=== PATIENT | female | born 1960 | race Caucasian/White ===

== ENCOUNTER 2018-09-01 05:31 | Inpatient (IN) | payer BC ==
[2018-08-25 09:42] LABS: URINE BILIRUBIN NEGATIVE (Negative); URINE BLOOD NEGATIVE (Negative); URINE CLARITY CLEAR; URINE COLOR YELLOW; URINE GLUCOSE-RANDOM* NEGATIVE (Negative); URINE KETONES NEGATIVE (Negative); URINE LEUKOCYTES-REFLEX NEGATIVE (Negative); URINE NITRITE-REFLEX NEGATIVE (Negative); URINE PROTEIN (DIPSTICK) NEGATIVE (Negative); URINE SPECIFIC GRAVITY 1.015 (1.005-1.035); URINE UROBILINOGEN 0.2 E.U./dl (0.2-1.0)
[2018-08-25 09:43] LABS: HEMATOCRIT 41.3 % (37.0-47.0); MCH 30.4 pg (26.0-34.0); MCHC 33.9 g/dL (28.0-37.0); MCV 89.7 fL (80.0-100.0); RBC 4.6 mil/uL (4.20-5.00); WBC 3.7 thou/uL (4.0-11.0)
[2018-08-25 09:55] LABS: PROTIME 9.9 Seconds (9.3-11.4)
[2018-08-25 09:59] LABS: ALBUMIN 3.8 g/dL (3.4-5.0); CALCIUM 9.9 mg/dL (8.5-10.1); CREATININE 0.8 mg/dL (0.6-1.0); POTASSIUM 4.3 mmol/L (3.5-5.1)
[~2018-09-01] VITALS: Ht 160 cm; Wt 88.5 kg
--- NOTE | ~2018-09-01 | EKG ---
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
--- NOTE | ~2018-09-01 | O ---
[facility] [address] [place] [address] OPERATIVE REPORT Name: KEVON HERRERA Room #: 423-1 [facility] IN M.R.#: [id number] Admission: 09/01/18 Attend Phys: Tony Faith MD Discharge: 09/02/18 Date of : 62 Report #: [id number] THIS REPORT FOR: //name// CC: Penny Aragon Tony Faith DATE OF SERVICE: 09/01/2018 PREOPERATIVE DIAGNOSIS: Right knee osteoarthritis. POSTOPERATIVE DIAGNOSIS: Right knee osteoarthritis. PROCEDURE: Right total knee arthroplasty using Navio robotic assistance. SURGEON: Tony Faith MD. CONCRETE CARPENTER: Steffanie Mendoza PA-C INDICATION FOR CONCRETE CARPENTER: Throughout the case, extensive retraction and manipulation of the knee was required. This was afforded to me by my journeyman operator assistant. ANESTHESIA: LMA with an adductor canal block. IMPLANTS: Young and Nephew size 4 Journey II BCS Oxinium femur, a size 3 tibia, size 10 polyethylene, and a size 29 patella. TOURNIQUET TIME: 62 minutes. ESTIMATED BLOOD LOSS: 25 mL. COMPLICATIONS: None. SPECIMENS: None. CONDITION UPON LEAVING THE OPERATING ROOM: Stable. INDICATIONS FOR PROCEDURE: The patient is a 57-year-old female with right knee osteoarthritis. She has failed conservative treatment for this and after discussion with her, she elected for right total knee arthroplasty. DESCRIPTION OF PROCEDURE: Risks, benefits, alternatives and complications were discussed in detail with the patient including but not limited to risk of anesthesia, risk of damage to nerves, arteries, blood vessels, risk for infection, bleeding, risk for continued knee pain and need for reoperation. Informed consent was obtained from the patient. The right knee was appropriately marked in the preoperative holding area. IV Ancef was given for [facility] [address] [place] [address] OPERATIVE REPORT Name: KEVON HERRERA Room #: 423-1 [facility] IN M.R.#: [id number] Admission: 09/01/18 Attend Phys: Tony Faith MD Discharge: 09/02/18 Date of : 62 Report #: [id number] preoperative antibiotics. She was brought to the operating room and placed in supine position on operating room table. LMA anesthesia was induced without complication. Tourniquet was placed on the right thigh. Right lower extremity was prepped and draped in normal sterile fashion. Timeout was performed properly identifying the patient and procedure as well as the instrumentation and implants. All in the operating room were in agreement. Right lower extremity was exsanguinated, tourniquet was inflated. Tourniquet time 62 minutes. Standard midline approach to knee was made with 10 blade through the skin. Dissection was taken down sharply to the fascia and deep flaps were developed medially and laterally. Fresh 10 blade was used to make a medial parapatellar arthrotomy and the knee was inspected. There was severe medial compartment osteoarthritis with moderate lateral compartment degenerative changes. It was decided to proceed with total knee arthroplasty. Anterior horns of the meniscus were removed sharply. ACL and PCL were removed sharply. Reference pins were then placed in the femur and the tibia for the Navio robotic system. The knee was then digitally mapped using the Navio system and the intraoperative plan was made. We sized a size 4 femur and a size 3 tibia. After acceptance of the intraoperative plan, the distal femoral cut was made with a Navio darnell and the 5-in-1 cutting block was placed on the femur. Anterior, posterior, and chamfer cuts were made. After this, attention was turned to the tibia. This was subluxed anteriorly and the remainder of the menisci were removed with Bovie cautery. Tibial resection was then made using the Navio navigation system for placement of the resection guide. After this, flexion and extension gaps were checked and found to have good balance in flexion and in extension. The tibia was sized, found to be a size 3, a size 3 tibial trial was placed and then punched. A size 4 femoral trial was placed and the box cut was made. This was trialed with a size 9 and then size 10 polyethylene, size 10 had the best fit throughout a range of motion both manually as well as digitally. 9 mm was taken off the posterior surface of the patella and a size 29 patellar trial button was placed. Knee was taken through range of motion, found to be stable, found to have good patellar tracking. After this, trial components were removed. Bone ends were thoroughly irrigated with normal saline. A final size 3 tibia, size 4 Journey II BCS Oxinium femur and a size 29 patella were cemented in place using standard cementation techniques. While the cement cured, a periarticular injection consisting of morphine, ropivacaine, epinephrine and Toradol was placed around the knee joint capsule. After the cement cured, the tourniquet was deflated. Hemostasis was obtained with Bovie cautery. Final size 10 polyethylene was placed. A gram of vancomycin was placed deep in the joint. Fascia was closed with 0 Vicryl, skin was closed with 2-0 Vicryl, 3-0 Monocryl, Dermabond and a GLADYS dressing was applied. The patient tolerated this procedure well and went to recovery room under care of anesthesia postoperatively. <ELECTRONICALLY SIGNED> By: Tony Faith MD 09/06/18 1713 1645 1717 MD dayanna Lindsay
[~2018-09-01 05:31] MED LIST: ALEVE220 MG PO; CALCIUM MAG ZINC PO; CETIRIZINE HCL5 MG PO; FISH OIL 1,001000 M2 PO; KLOR-CON 10 ER10 MEQ PO; LASIX 20 MG TAB20 MG PO; MULTI VITAMIN1 EACH PO; VITAMIN B-121000 MCG PO; VITAMIN B-6100 MG PO; VITAMINC500 PO; [UNRECOGNIZED DRUG - OTHER] PO
[2018-09-01 21:26] VITALS: BP 120/69
[2018-09-02 03:09] VITALS: BP 152/81
[2018-09-02 05:59] LABS: HEMATOCRIT 36.4 % (37.0-47.0); HEMOGLOBIN 12.3 gm/dL (12.0-15.0); MCH 30.3 pg (26.0-34.0); MCHC 33.7 g/dL (28.0-37.0); MCV 89.9 fL (80.0-100.0); RBC 4.05 mil/uL (4.20-5.00); RDW 12.7 % (10.5-14.5); WBC 9.2 thou/uL (4.0-11.0)
[2018-09-02 07:40] VITALS: BP 105/55
[2018-09-02] MEDS ORDERED: TRI-BUFFERED A325 M1 PO (11:35)
[2018-09-02] MEDS ORDERED: NEURONTIN 300300 M1 PO (11:35)
[2018-09-02 12:06] VITALS: BP 105/55
[2018-09-02 15:50] VITALS: BP 104/54
== END 2018-09-02 18:37 | disposition home health service (06) | DRG 470 ==
LOC: PRE 05:31 → 4E 05:32 → TBA 05:32 → PRE 05:36 → 4E 17:41
PROVIDERS: Orthopaedic Surgery
PROC: 0SRC069 Replacement of Right Knee Joint with Oxidized Zirconium on Polyethylene Synthetic Substitute, Cemented, Open Approach (ICD-10-PCS; principal; 2018-09-01)
PROC: 8E0Y0CZ Robotic Assisted Procedure of Lower Extremity, Open Approach (ICD-10-PCS; 2018-09-01)
DX: M17.11 Unilateral primary osteoarthritis, right knee (principal); M71.22 Synovial cyst of popliteal space [Baker], left knee; Z79.899 Other long term (current) drug therapy; Z79.82 Long term (current) use of aspirin; Z82.61 Family history of arthritis; Z83.3 Family history of diabetes mellitus; Z82.49 Family history of ischemic heart disease and other diseases of the circulatory system; Z83.49 Family history of other endocrine, nutritional and metabolic diseases
CPT/HCPCS: 10783; 50010; 50101; 50415; 50954; 51130; 51225; 51771; 53000; 53078; 54118; 55372; 56527; 56528; 57095; 57103; 57109; 57110; 57113; 57127; 57180; 62110; 62900; 64042; 70005

== ENCOUNTER 2018-10-21 06:02 | Day surgery (SDC) | payer BC ==
[~2018-10-21] VITALS: Ht 160 cm; Wt 90.3 kg
--- NOTE | ~2018-10-21 | O ---
[facility] [address] [place] [address] OPERATIVE REPORT Name: KEVON HERRERA Room #: 150-11 [facility] M.R.#: [id number] Admission: 10/21/18 Attend Phys: Tony Faith MD Discharge: Date of : 62 Report #: [id number] THIS REPORT FOR: //name// CC: Penny Aragon Tony Faith DATE OF SERVICE: 10/21/2018 PREOPERATIVE DIAGNOSIS: Right knee arthrofibrosis, status post total knee arthroplasty. POST-PROCEDURE DIAGNOSIS: Right knee arthrofibrosis, status post total knee arthroplasty. PROCEDURE: Right knee manipulation under anesthesia. SURGEON: Tony Faith MD ANESTHESIA: MAC. COMPLICATIONS: None. CONDITION UPON LEAVING THE OPERATING ROOM: Stable. INDICATIONS FOR PROCEDURE: The patient is a 57-year-old female who is about 6 weeks out from a right total knee arthroplasty. She has plateaued with physical therapy with range of motion from 3-80 degrees. After discussion with her regarding options, she elected for right knee manipulation under anesthesia. DESCRIPTION OF PROCEDURE: Risks, benefits, alternatives, complications were discussed in detail with the patient including but not limited to risk of anesthesia, risk of damage to nerves, arteries, blood vessels, risk for infection, bleeding, risk for continued knee pain, stiffness, and need for reoperation as well as intraoperative fracture. Informed consent was obtained from the patient. Right knee was appropriately marked in the preoperative holding area. She was brought to the operating room and placed in the supine position on the operating room table. MAC anesthesia was induced without complication. Timeout was performed properly identifying the patient and procedure as well as instrumentation. All in the operating room were in agreement. Right knee was then examined passively and her range of motion was 3-80 degrees passively. The knee was then gently manipulated with applying pressure on the proximal tibia with palpable breakage of scar tissue. At the end of manipulation, her range of motion was 3-125 degrees. Fluoroscopic imaging was then brought in to verify. No fracture was present as was the case. [facility] [address] [place] [address] OPERATIVE REPORT Name: KEVON HERRERA Room #: 150-[address] [place] [address] M.R.#: [id number] Admission: 10/21/18 Attend Phys: Tony Faith MD Discharge: Date of : 62 Report #: [id number] She was then awakened from anesthesia and taken to the recovery room under care of anesthesia postoperatively. By: [id number] 1356 Tony Faith MD /nt
[~2018-10-21 06:02] MED LIST changes: +NASAL DECONGEST30 MG PO; +NEURONTIN 300300 M1 PO; +PREDNISONE10 MG PO; +TRAMADOL 50 MG50 MG PO; +TRI-BUFFERED A325 M1 PO; +ZYRTEC-D TABLE1 EAC1 PO
[2018-10-21 11:22] LABS: POTASSIUM 3.6 mmol/L (3.5-5.1)
[2018-10-21] MEDS ORDERED: HYDROCODON-ACE1 EA11 PO (13:10)
[2018-10-21 14:43] VITALS: BP 139/82
== END 2018-10-21 15:05 | disposition home or self-care (01) ==
LOC: TBA 06:02 → OR 06:02 → TBA 06:03 → OR 14:29
PROVIDERS: Orthopaedic Surgery
DX: M24.661 Ankylosis, right knee (principal); Z98.890 Other specified postprocedural states
CPT/HCPCS: 50010; 50101; 70005

== ENCOUNTER 2018-12-30 05:38 | Day surgery (SDC) | payer BC ==
[~2018-12-30] VITALS: Ht 157.5 cm; Wt 90.7 kg
--- NOTE | ~2018-12-30 | O ---
[facility] [address] [place] [address] OPERATIVE REPORT Name: KEVON HERRERA Room #: 150-4 [facility] M..#: [id number] Admission: 12/30/18 ������������������ Attend Phys: Tony Faith MD Discharge: ������������������ Date of : 62 Report #: [id number] THIS REPORT FOR: //name// CC: Penny Aragon Tony Faith DATE OF SERVICE: 12/30/2018 PREOPERATIVE DIAGNOSIS: Right total knee arthroplasty arthrofibrosis. POSTOPERATIVE DIAGNOSIS: Right total knee arthroplasty arthrofibrosis. PROCEDURE: Right knee arthroscopy with extensive lysis of adhesions. SURGEON: Tony Faith MD PARAFFIN PLANT OPERATOR: Steffanie Mendoza PA-C ANESTHESIA: LMA. COMPLICATIONS: None. SPECIMENS: None. TOURNIQUET TIME: Approximately 22 minutes. CONDITION UPON LEAVING THE OPERATING ROOM: Stable. INDICATIONS FOR PROCEDURE: The patient is a 58-year-old female, who is about 4 months out from a right total knee arthroplasty. She has been complaining of pain and popping in her knee. She previously has undergone a manipulation under anesthesia. She feels that there is something getting pinched between her in her knee. After discussion with her, she elected for right knee arthroscopy with arthroscopic lysis of adhesions. DESCRIPTION OF PROCEDURE: Risks, benefits, alternatives and complications were discussed in detail with the patient including, but not limited to risk of anesthesia; risk of damage to nerves, arteries, blood vessels, risk for infection or bleeding; risk for continued knee pain, need for reoperation. Informed consent was obtained from the patient. Right knee was appropriately marked in the preoperative holding area. IV Ancef was given for preoperative antibiotics. She was brought to the operating room and placed in supine position on operating room table. LMA anesthesia was induced without complication. Tourniquet was placed on the right thigh. Right lower extremity was prepped and draped in normal sterile fashion. Timeout was performed properly identifying the patient and procedure as well as the instrumentation. [address] [address] OPERATIVE REPORT Name: KEVON HERRERA Room #: 150-4 [facility] Tray.#: [id number] Admission: 12/30/18 ������������������ Attend Phys: Tony Faith MD Discharge: ������������������ Date of : 62 Report #: [id number] All in the operating room were in agreement. Right lower extremity was exsanguinated, tourniquet was inflated. Tourniquet time was approximately 22 minutes. Standard anterolateral portal was established with an 11 blade through the skin. Arthroscope was introduced into the patellofemoral compartment, diagnostic arthroscopy was undertaken. There was extensive medial and lateral as well as anterior scarring and hypertrophy of the synovium throughout the joint. A medial portal was established under arthroscopic visualization. A scar was then removed with oscillating shaver both medially, laterally as well as in the intercondylar notch. After extensive debridement of the scar tissue, all fluid was allowed to drain from the knee. Knee was injected with 10 mL of 0.5% Marcaine. Incision was closed with 3-0 nylon. Soft dressing of Adaptic, 4 x 4, Webril, Bismark wrap were applied. The patient tolerated this procedure well and went to recovery room under care of anesthesia postoperatively. ��������������������������������������������� ���������������������������������������� By: ��������������������������������������������� 1134 1227 Tony Faith MD /nt
[~2018-12-30 05:38] MED LIST changes: +HYDROCODON-ACE1 EA11 PO; +MOBIC15 MG PO
[2018-12-30 09:39] VITALS: BP 123/70
[2018-12-30 11:49] VITALS: BP 123/70
== END 2018-12-30 13:10 | disposition home or self-care (01) ==
LOC: OR 05:38 → TBA 05:39 → OR 06:12
DX: M24.661 Ankylosis, right knee (principal); Z68.36 Body mass index [BMI] 36.0-36.9, adult
CPT/HCPCS: 50010; 50101; 50405; 51038; 54170; 56526; 57103; 62110; 62900; 70005

== ENCOUNTER 2021-09-06 06:06 | Day surgery (SDC) | payer BC ==
[~2021-09-06] VITALS: Ht 160 cm; Wt 90.7 kg
[~2021-09-06 06:06] MED LIST changes: +PEPCID20 MG PO
[2021-09-06 07:30] VITALS: BP 127/66
[2021-09-06] MEDS ORDERED: PERCOCET 7.5-31 EAC1 PO (08:21)
[2021-09-06 08:28] VITALS: BP 127/66
--- NOTE | 2021-09-10 07:31 | O ---
[facility] [place] [address] [place] [address] OPERATIVE REPORT Name: KEVON HERRERA Room #: DEP [facility]..#: [id number] Admission: 09/06/21 Attend Phys: Maximo Silverman MD Discharge: 09/06/21 Date of : 62 Report #: [id number] THIS REPORT FOR: cc: Penny Aragon MD, Melissa J. MD Kneidel,Maximo Osorio MD ~ DATE OF SERVICE: 09/06/2021 PREOPERATIVE DIAGNOSIS: Right foot fifth toe hammertoe. POSTOPERATIVE DIAGNOSIS: Right foot fifth toe hammertoe. PROCEDURE: Right foot fifth toe PIP joint revision arthrodesis. SURGEON: Maximo Silverman MD ROOF FIXER: None. ANESTHESIA: General. ESTIMATED BLOOD LOSS: Minimal. DRAINS: No drains. TOURNIQUET TIME: 20 minutes. DESCRIPTION OF PROCEDURE: The patient was brought to the operating room where she was placed under general anesthesia. Once under adequate general anesthesia, her right lower extremity was prepped and draped in a sterile manner. The extremity was elevated, exsanguinated and tourniquet placed to 300 mmHg. A dorsal incision at the patient's previous scar was then made. This was dissected sharply down to the bone. At this point, the patient's previous Smart Toe implant was identified and subsequently removed utilizing a rongeur. Once removed, the joint was debrided to good bleeding subchondral bone with a rongeur and then subsequent fixation across the toe was achieved with a K-wire. A dorsal capsulotomy and tenotomy at the fifth toe metatarsophalangeal joint was made percutaneously with a [place] blade. Excellent fixation across the joint was achieved with a 0.062 K-wire. Excellent fixation and alignment was achieved as verified under fluoroscopy. The wounds were irrigated copiously and closed with 3-0 nylon for the skin. Tourniquet was let down at 20 minutes. Toes are pink and warm with good capillary refill. There were no complications from the [facility] [address] [place] [address] OPERATIVE REPORT Name: KEVON HERRERA Room #: DEP [facility] M.R.#: [id number] Admission: 09/06/21 Attend Phys: Maximo Silverman MD Discharge: 09/06/21 Date of : 62 Report #: [id number] procedure. The patient tolerated the procedure well and was to the recovery room without incident. <ELECTRONICALLY SIGNED> By: Maximo Silverman MD 09/10/21 0731 0727 0749 Maximo Silverman MD /nt
== END 2021-09-06 09:30 | disposition home or self-care (01) ==
LOC: TBA 06:06 → OR 06:06 → TBA 06:08 → OR 09:30
PROVIDERS: ATTEND Orthopaedic Surgery Foot and Ankle Surgery
DX: M20.41 Other hammer toe(s) (acquired), right foot (principal); M25.571 Pain in right ankle and joints of right foot; K21.9 Gastro-esophageal reflux disease without esophagitis; Z98.890 Other specified postprocedural states; Z96.651 Presence of right artificial knee joint; Z79.899 Other long term (current) drug therapy; Z87.442 Personal history of urinary calculi
CPT/HCPCS: 50010; 50101; 50386; 56524; 56527; 57091; 57179; 62110; 62900; 70005